=== PATIENT | female | born 1940 | race Caucasian/White ===

== ENCOUNTER 2021-11-02 18:53 | Emergency (ER) | payer OTHER ==
[2021-11-02 19:05] VITALS: BP 159/90; PULSE 89; RESP 18; TEMP 97.4; BMI 26.2
== END 2021-11-02 22:05 | disposition home or self-care (01) ==
LOC: JER 18:53
PROC: 0HQ1XZZ Repair Face Skin, External Approach (ICD-10-PCS; principal; 2021-11-02)
DX: S01.81XA Laceration without foreign body of other part of head, initial encounter (principal); W01.0XXA Fall on same level from slipping, tripping and stumbling without subsequent striking against object, initial encounter
CPT/HCPCS: 70450-TC; 72125-TC; 99284-25

== ENCOUNTER 2022-02-05 09:36 | Emergency (ER) | payer OTHER ==
[2022-02-05 09:58] VITALS: BP 143/74; PULSE 78; RESP 16; TEMP 99.2; BMI 24.2
[2022-02-05] MEDS ORDERED: IBUPROFEN 600 MG TABLET (FP) PO ONE ×2 (10:50→11:11)
== END 2022-02-05 11:21 | disposition home or self-care (01) ==
LOC: JER 09:36
DX: M54.50 Low back pain, unspecified (principal); W01.0XXA Fall on same level from slipping, tripping and stumbling without subsequent striking against object, initial encounter
CPT/HCPCS: 99283-25

== ENCOUNTER 2022-09-14 11:02 | Emergency (ER) | payer OTHER ==
[2022-09-14 11:15] VITALS: BMI 24.2
[2022-09-14] MEDS ORDERED: ACETAMINOPHEN 500 MG TABLET (FP) PO ONE (11:48)
[2022-09-14 11:51] VITALS: RESP 16
[2022-09-14] MEDS: DIPHTH,PERTUSS(ACELL),TET 0.5 ML DISP.SYRIN IM ONE ×2 (11:51→12:02)
[2022-09-14] MEDS ORDERED: ACETAMINOPHEN 325 MG TABLET (FP) ONE (11:52)
[2022-09-14] MEDS ORDERED: DIPHTH,PERTUSS(ACELL),TET 0.5 ML DISP.SYRIN IM ONE (11:53)
[2022-09-14] MEDS ORDERED: LIDOCAINE HCL 1%, 10 MG/ML (50 mL VIAL) SQ ONE (14:08)
[2022-09-14] MEDS ORDERED: LIDOCAINE HCL/PF 1% SDV 5ML VIAL ONE (14:20)
[2022-09-14 15:50] VITALS: BP 150/89; PULSE 74; TEMP 97.7
== END 2022-09-14 16:26 | disposition home or self-care (01) ==
LOC: JER 11:02
PROC: 0PSRXZZ Reposition Right Thumb Phalanx, External Approach (ICD-10-PCS; principal; 2022-09-14)
PROC: 2W3GX1Z Immobilization of Right Thumb using Splint (ICD-10-PCS; 2022-09-14)
DX: S63.104A Unspecified dislocation of right thumb, initial encounter (principal); M79.641 Pain in right hand; W19.XXXA Unspecified fall, initial encounter; Y92.480 Sidewalk as the place of occurrence of the external cause
CPT/HCPCS: 26770; 29130; 73130-TC-RT-FY; 90715; 96365; 99283-25

== ENCOUNTER 2023-01-15 11:06 | Emergency (ER) | payer OTHER ==
[2023-01-15 11:16] VITALS: PULSE 82; RESP 18; BMI 25.0
[2023-01-15] MEDS ORDERED: MAGNESIUM CITRATE 300 ML BOTTLE PO ONE (11:48)
[2023-01-15] MEDS ORDERED: MAGNESIUM CITRATE 300 ML BOTTLE ONE (12:07)
[2023-01-15 13:08] LABS: BASO % 0.4 % (0-2.0); EOS % 1.5 % (0-4.5); HEMATOCRIT 37.8 % (32.4-45.2); HEMOGLOBIN 12.7 GM/dL (10.7-15.3); MCH 30.7 pg (25.7-33.7); MCHC 33.6 g/dl (32.0-36.0); MEAN CELL VOLUME 91.3 fl (80-96); MEAN PLT VOLUME 8.7 fl (7.5-11.1); NEUT % 74.1 % (42.8-82.8); PLATELET COUNT 212 10^3/uL (134-434); RBC 4.14 M/mm3 (3.60-5.2); RDW 14.8 % (11.6-15.6); WHITE BLOOD COUNT 5.8 K/mm3 (4.0-10.0)
[2023-01-15 13:59] LABS: POTASSIUM 4.2 mmol/L (3.5-5.1)
[2023-01-15 14:02] LABS: ALBUMIN 3.7 g/dl (3.4-5.0); CALCIUM 9.4 mg/dL (8.5-10.1)
[2023-01-15 14:05] LABS: CREATININE 1.1 mg/dL (0.55-1.3)
[2023-01-15 14:07] LABS: TOT PROT 7.7 g/dl (6.4-8.2)
[2023-01-15 14:08] LABS: BILIRUBIN,TOTAL 0.5 mg/dL (0.2-1)
[2023-01-15] MEDS ORDERED: SODIUM PHOSPHATE/NA BIPHOS 133 ML ENEMA PR ONE (15:23)
[2023-01-15 17:03] VITALS: BP 123/91; TEMP 98.2
== END 2023-01-15 17:03 | disposition home or self-care (01) ==
LOC: JER 11:06
DX: K59.00 Constipation, unspecified (principal); R11.0 Nausea; R10.9 Unspecified abdominal pain
CPT/HCPCS: 36415; 80053; 83605; 84443; 85025; 99283-25